=== PATIENT | female | born 1935 | race Hispanic/Latino ===

== ENCOUNTER 2017-04-16 16:07 | Inpatient (IN) | payer MEDICARE ==
[2017-04-16] MEDS ORDERED: Sodium Chloride 0.9% 1,000 ML IV STA (16:35)
--- NOTE | 2017-04-16 16:40 | ED PDOC ---
HPI: General Adult Time Seen by Provider: 04/16/17 16:20 Chief Complaint (Nursing): GI Problem Chief Complaint (Provider): Vomiting History Per: Patient History/Exam Limitations: no limitations Onset/Duration Of Symptoms: Days (today) Have you had recent travel within the past 21 days to any of the following countries: [place], [place], [place] or [place]?: No Current Symptoms Are (Timing): Still Present Additional Complaint(s): Pt. 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 No new food, drinks, travel. No chest pain, dyspnea, numbness, tingles, headaches, abd pain , headaches, dizziness, fever, back pain. No urinary complaints. Past Medical History Reviewed: Nursing Documentation, Vital Signs Vital Signs: Last Vital Signs Temp 96.5 F L 04/16/17 16:09 Pulse 82 04/16/17 16:09 Resp 16 04/16/17 16:09 BP 137/99 H 04/16/17 16:09 Pulse Ox - Medical History PMH: No Chronic Diseases - Surgical History Surgical History: No Surg Hx - Family History Family History: States: Unknown Family Hx - Living Arrangements Living Arrangements: With Family - Social History Current smoker - smoking cessation education provided: No Alcohol: None Drugs: Denies - Home Medications Home Medications: Ambulatory Orders Medication Instructions Recorded No Known Home Med 04/16/17 - Allergies Allergies/Adverse Reactions: Allergies Allergy/AdvReac Type Severity Reaction Status Date / Time No Known Allergies Allergy Verified 04/16/17 16:09 Review of Systems ROS Statement: Except As Marked, All Systems Reviewed And Found Negative Gastrointestinal: Positive for: Nausea, Vomiting Neurological: Positive for: Weakness Physical Exam - Reviewed Nursing Documentation Reviewed: Yes Vital Signs Reviewed: Yes - Physical Exam Appears: Positive for: Non-toxic, No Acute Distress Head Exam: Positive for: ATRAUMATIC, NORMAL INSPECTION, NORMOCEPHALIC Skin: Positive for: Normal Color, Warm, DRY Eye Exam: Positive for: EOMI, Normal appearance, PERRL ENT: Positive for: Normal ENT Inspection Neck: Positive for: Normal, Painless ROM Cardiovascular/Chest: Positive for: Regular Rate, Rhythm Respiratory: Positive for: CNT, Normal Breath Sounds Gastrointestinal/Abdominal: Positive for: Normal Exam, Bowel Sounds, Soft. Negative for: Tenderness Back: Positive for: Normal Inspection. Negative for: L CVA Tenderness, R CVA Tenderness Extremity: Positive for: Normal ROM. 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 Negative for: Motor/Sensory Deficits, Aphasia, Facial Droop - Laboratory Results Result Diagrams: 04/16/17 17:05 04/16/17 17:05 Interpretation Of Abn Labs: no acute - ECG ECG: Positive for: Interpreted By Me, Viewed By Me ECG Rhythm: Positive for: Normal QRS, Normal ST Segment, Sinus Rhythm - Radiology X-Ray: Read By Radiologist X-Ray Interpretation: No Acute Disease - CT Scan/US ct Other Rad Studies (CT/US): Read By Radiologist, Radiology Report Reviewed Other Rad Interpretation: no acute - Progress ED Course And Treament: 1848: Stable. Spoke with Dr. Miller. Will admit. Pt. still feels generally weak. No numbness, tingles. Continue fluids. Disposition - Clinical Impression Clinical Impression: Weakness, Vomiting - Patient ED Disposition Is Patient to be Admitted: Yes Counseled Patient/Family Regarding: Studies Performed, Diagnosis - Disposition Disposition Time: 18:50 Condition: FAIR - Pt Status Changed To: Hospital Disposition Of: Observation - POA Present On Arrival: None
[2017-04-16 17:16] LABS: BASO # 0.1 K/uL (0.0-0.2); BASO % 0.6 % (0.0-2.0); EOS % 0.4 % (0.0-4.0); HEMATOCRIT 41.9 % (34.0-47.0); LYMPH # 1.4 K/uL (1.0-4.3); LYMPH % 16.4 % (20.0-40.0); MEAN CELL VOLUME 91.5 fl (81.0-99.0); MEAN CORPUSCULAR HEMOGLOBIN 31.1 pg (27.0-31.0); MEAN PLATELET VOLUME 9.4 fl (7.2-11.7); MONO # 0.5 K/uL (0.0-0.8); MONO % 5.4 % (0.0-10.0); NEUT # 6.6 K/uL (1.8-7.0); NEUT % 77.2 % (50.0-75.0); NRBC % 0.1 % (0.0-0.0); RED CELL DISTRIBUTION WIDTH 13.3 % (11.5-14.5); WHITE BLOOD COUNT 8.6 K/uL (4.8-10.8)
[2017-04-16 17:27] LABS: ALB/GLOB RATIO 1.5 (1.0-2.1); ALKALINE PHOSPHATASE 62 U/L (38-126); ALT/SGPT 24 U/L (9-52); AST/SGOT 23 U/L (14-36); BILIRUBIN,TOTAL 0.9 mg/dl (0.2-1.3); BLOOD UREA NITROGEN 20 mg/dl (7-17); CALCIUM 9.6 mg/dL (8.4-10.2); CARBON DIOXIDE 25 mmol/L (22-30); CHLORIDE 101 mmol/L (98-107); GFR AFRICAN-AMERICAN > 60; GLUCOSE,RANDOM 118 mg/dL (65-105); LIPASE 93 U/L (23-300); POTASSIUM 4.1 MMOL/L (3.6-5.0); SODIUM 139 mmol/l (132-148); TOTAL PROTEIN 7.4 G/DL (6.3-8.2)
[2017-04-16 17:33] LABS: PARTIAL THROMBOPLASTIN TIME 28.5 Seconds (25.6-37.1)
--- NOTE | 2017-04-16 18:10 | CT ---
PROCEDURE: CT HEAD WITHOUT CONTRAST. HISTORY: headache COMPARISON: None available. TECHNIQUE: Axial computed tomography images were obtained through the head/brain without intravenous contrast. Radiation dose: Total exam DLP = 879.82 mGy-cm. This CT exam was performed using one or more of the following dose reduction techniques: Automated exposure control, adjustment of the mA and/or kV according to patient size, and/or use of iterative reconstruction technique. FINDINGS: HEMORRHAGE: No intracranial hemorrhage. BRAIN: Diffuse atrophy with prominence of the ventricles and sulci noted. No mass effect or edema. Scattered periventricular and subcortical white matter hypodensities, which are nonspecific, but often seen with chronic microvascular ischemic disease. Please note that MRI with diffusion imaging is more sensitive in the detection of acute ischemic event. VENTRICLES: No hydrocephalus. CALVARIUM: Unremarkable. PARANASAL SINUSES: Unremarkable as visualized. No significant inflammatory changes. MASTOID AIR CELLS: Small fluid/ partial opacification of the right mastoid air cells. The left mastoid air cells appear clear. OTHER FINDINGS: None. IMPRESSION: Nonspecific white matter changes. Generalized atrophy. Small fluid/ partial opacification of the right mastoid air cells. Correlate clinically for possibility of acute mastoiditis.
--- NOTE | 2017-04-16 18:33 | RAD ---
HISTORY: Weakness. COMPARISON: No prior. FINDINGS: LUNGS: No active pulmonary disease. PLEURA: No significant pleural effusion identified, no pneumothorax apparent. CARDIOVASCULAR: No radiographic findings to suggest acute or significant cardiovascular disease. OSSEOUS STRUCTURES: No significant abnormalities. VISUALIZED UPPER ABDOMEN: Normal. OTHER FINDINGS: None. IMPRESSION: No active disease.
[2017-04-16] MEDS: Sodium Chloride 0.9% 1,000 ML IV SCH (22:07)
--- NOTE | 2017-04-17 09:40 | CP.PCM.HP ---
History of Present Illness - History of Present Illness History of Present Illness: Pt. 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 No new food, drinks, travel. No chest pain, dyspnea, numbness, tingles, headaches, abd pain , headaches, dizziness, fever, back pain. No urinary complaints. Present on Admission - Present on Admission Any Indicators Present on Admission: No History of DVT/PE: No History of Uncontrolled Diabetes: No Urinary Catheter: No Decubitus Ulcer Present: No Review of Systems - Review of Systems All systems: reviewed and no additional remarkable complaints except Past Patient History - Past Medical History & Family History Past Medical History?: No Past Family History: Reviewed and not pertinent - Past Social History Smoking Status: Never Smoked Alcohol: None Drugs: Denies - PSYCHIATRIC Hx Substance Use: No - SURGICAL HISTORY Hx Surgeries: Yes Hx Hysterectomy: Yes - ANESTHESIA Hx Anesthesia: Yes Meds Allergies/Adverse Reactions: Allergies Allergy/AdvReac Type Severity Reaction Status Date / Time No Known Allergies Allergy Verified 04/16/17 16:09 Results - Vital Signs Recent Vital Signs: Last Vital Signs Temp 98.2 F 04/17/17 08:49 Pulse 72 04/17/17 08:49 Resp 16 04/17/17 08:49 BP 143/81 04/17/17 08:49 Pulse Ox 97 04/17/17 08:49 - Labs Result Diagrams: 04/16/17 17:05 04/16/17 17:05 Labs: Laboratory Results - last 24 hr 04/16/17 04/16/17 04/16/17 17:05 17:05 17:05 WBC 8.6 RBC 4.57 Hgb 14.2 Hct 41.9 MCV 91.5 MCH 31.1 H MCHC 34.0 RDW 13.3 Plt Count 162 MPV 9.4 Neut % (Auto) 77.2 H Lymph % (Auto) 16.4 L [place] % (Auto) 5.4 Eos % (Auto) 0.4 Baso % (Auto) 0.6 Neut # 6.6 Lymph # 1.4 [place] # 0.5 Eos # 0.0 Baso # 0.1 PT 10.6 INR 0.9 APTT 28.5 Sodium 139 Potassium 4.1 Chloride 101 Carbon Dioxide 25 Anion Gap 17 BUN 20 H Creatinine 0.8 Est GFR ( Amer) > 60 Est GFR (Non-Af Amer) > 60 Random Glucose 118 H Calcium 9.6 Total Bilirubin 0.9 AST 23 ALT 24 Alkaline Phosphatase 62 Troponin I < 0.0120 Total Protein 7.4 Albumin 4.4 Globulin 3.0 Albumin/Globulin Ratio 1.5 Lipase 93 TSH 3rd Generation 04/16/17 23:10 WBC RBC Hgb Hct MCV MCH MCHC RDW Plt Count MPV Neut % (Auto) Lymph % (Auto) [place] % (Auto) Eos % (Auto) Baso % (Auto) Neut # Lymph # [place] # Eos # Baso # PT INR APTT Sodium Potassium Chloride Carbon Dioxide Anion Gap BUN Creatinine Est GFR ( Amer) Est GFR (Non-Af Amer) Random Glucose Calcium Total Bilirubin AST ALT Alkaline Phosphatase Troponin I Total Protein Albumin Globulin Albumin/Globulin Ratio Lipase TSH 3rd Generation 4.60
[2017-04-17] MEDS: Sodium Chloride 0.9% 1,000 ML IV SCH ×2 (10:46→21:41)
[2017-04-17] MEDS: Enoxaparin 40 mg Syringe SC SCH (11:31)
--- NOTE | 2017-04-17 18:07 | CARD ---
APPROVED REPORT EKG Measurement Heart [id number] <Conclusion> Sinus rhythm with premature atrial complexes Otherwise normal ECG
[2017-04-17 18:39] VITALS: BMI 18.1
[2017-04-17] MEDS: Docusate-Senna 50 mg-8.6 mg Tab PO SCH (21:39)
[2017-04-18 05:53] LABS: ALB/GLOB RATIO 1.2 (1.0-2.1); ALKALINE PHOSPHATASE 43 U/L (38-126); ALT/SGPT 27 U/L (9-52); AST/SGOT 21 U/L (14-36); BILIRUBIN,TOTAL 0.9 mg/dl (0.2-1.3); BLOOD UREA NITROGEN 14 mg/dl (7-17); CALCIUM 8.4 mg/dL (8.4-10.2); CARBON DIOXIDE 25 mmol/L (22-30); CHLORIDE 111 mmol/L (98-107); GFR AFRICAN-AMERICAN > 60; GLUCOSE,RANDOM 88 mg/dL (65-105); POTASSIUM 3.6 MMOL/L (3.6-5.0); SODIUM 141 mmol/l (132-148); TOTAL PROTEIN 5.8 G/DL (6.3-8.2)
[2017-04-18 05:54] LABS: HEMATOCRIT 36.2 % (34.0-47.0); MEAN CELL VOLUME 91.4 fl (81.0-99.0); MEAN CORPUSCULAR HEMOGLOBIN 31.1 pg (27.0-31.0); RED CELL DISTRIBUTION WIDTH 13.5 % (11.5-14.5); WHITE BLOOD COUNT 6.3 K/uL (4.8-10.8)
[2017-04-18] MEDS: Enoxaparin 40 mg Syringe SC SCH (08:26)
--- NOTE | 2017-04-18 13:50 | CP.PCM.PN ---
Subjective - Date & Time of Evaluation Date of Evaluation: 04/18/17 Time of Evaluation: 12:20 Objective - Vital Signs/Intake and Output Vital Signs (last 24 hours): Temp Pulse Resp BP Pulse Ox 98.2 F 92 H 20 152/96 H 97 04/18/17 12:00 04/18/17 12:00 04/18/17 12:00 04/18/17 12:00 04/18/17 12:00 - Medications Medications: Current Medications Enoxaparin Sodium (Lovenox) 40 mg SC DAILY [facility] PRN Reason: Protocol Last Admin: 04/18/17 08:26 Dose: 40 mg Lactulose (Enulose) 20 gm PO DAILY [facility] Ondansetron HCl (Zofran Inj) 4 mg IVP Q6 PRN PRN Reason: Nausea/Vomiting Senna/Docusate Sodium (Senokot S 50 Mg-8.6 Mg) 2 tab PO HS [facility] Last Admin: 04/17/17 21:39 Dose: 2 tab - Labs Labs: 04/18/17 04:20 04/18/17 04:20 PT 10.6 Seconds (9.8-13.1) 04/16/17 17:05 INR 0.9 (0.9-1.2) 04/16/17 17:05 APTT 28.5 Seconds (25.6-37.1) 04/16/17 17:05
[2017-04-18] MEDS: Docusate-Senna 50 mg-8.6 mg Tab PO SCH (22:59)
[2017-04-19] MEDS: Enoxaparin 40 mg Syringe SC SCH (08:27)
[2017-04-19 12:50] VITALS: RESP 18
--- NOTE | 2017-04-19 15:00 | CP.PCM.CON ---
History of Present Illness - History of Present Illness History of Present Illness: 81 year old female seen at bedside for painful, elongated, dystrophic toenails. Patient states that she has not had her nails cut in a long period of time. Patient is AAO x 3 and NAD, resting comfortably in bed. Patient denies any further pedal complaints at this time. Patient denies N/V/F/C/CP/SOB Review of Systems - Review of Systems Review of Systems: ROS unremarkable outside of HPI Past Patient History - Past Medical History & Family History Past Medical History?: No - Past Social History Smoking Status: Never Smoked - CARDIAC Hx Cardiac Disorders: No - PULMONARY Hx Respiratory Disorders: No - NEUROLOGICAL Hx Neurological Disorder: No - HEENT Hx HEENT Problems: Yes Hx Cataracts: Yes - RENAL Hx Chronic Kidney Disease: No - ENDOCRINE/METABOLIC Hx Endocrine Disorders: No - HEMATOLOGICAL/ONCOLOGICAL Hx Blood Disorders: No - INTEGUMENTARY Hx Dermatological Problems: No - MUSCULOSKELETAL/RHEUMATOLOGICAL Hx Musculoskeletal Disorders: No Hx Falls: No - GASTROINTESTINAL Hx Gastrointestinal Disorders: Yes Hx Constipation: Yes - GENITOURINARY/GYNECOLOGICAL Hx Genitourinary Disorders: No - PSYCHIATRIC Hx Psychophysiologic Disorder: No Hx Substance Use: No - SURGICAL HISTORY Hx Surgeries: Yes Hx Cataract Extraction: Yes (L eye Cataract Sx) Hx Hysterectomy: Yes - ANESTHESIA Hx Anesthesia: Yes Hx Anesthesia Reactions: No Meds Home Medications: Home Medication List Medication Instructions Recorded Confirmed Type Docusate Sodium/Sennosides A 2 tab PO HS tab 04/19/17 Rx [Senokot S 50 MG-8.6 MG] Allergies/Adverse Reactions: Allergies Allergy/AdvReac Type Severity Reaction Status Date / Time No Known Allergies Allergy Verified 04/16/17 16:09 - Medications Medications: Current Medications Enoxaparin Sodium (Lovenox) 40 mg SC DAILY [facility] PRN Reason: Protocol Last Admin: 04/19/17 08:27 Dose: 40 mg Lactulose (Enulose) 20 gm PO DAILY [facility] Last Admin: 04/19/17 08:27 Dose: Not Given Ondansetron HCl (Zofran Inj) 4 mg IVP Q6 PRN PRN Reason: Nausea/Vomiting Senna/Docusate Sodium (Senokot S 50 Mg-8.6 Mg) 2 tab PO HS [facility] Last Admin: 04/18/17 22:59 Dose: Not Given Physical Exam - Constitutional Appears: Well, Non-toxic, No Acute Distress - Extremities Exam Additional comments: LE focused exam Vasc: DP/PT pulses palpable 2/4 b/l. Skin temperature warm to warm from proximal to distal. CFT < 3 seconds to all digits b/l. Pedal hair growth appreciated. No edema noted b/l Neuro: Epicritic and protective sensation grossly intact b/l Derm: No open lesions, wounds, maceration, xerosis, abnormal pigmentation or abnormal growths noted. Nails noted to be elongated, dystrophic, and abnormally colored MSK: No POP to b/l LE. MMT 5/5 on inversion, eversion, dorsiflexion and plantarflexion of feet b/l. ROM WNL to all major joints of LE - Neurological Exam Neurological exam: Alert, Oriented x3 - Psychiatric Exam Psychiatric exam: Normal Affect, Normal Mood Results - Vital Signs Recent Vital Signs: Last Vital Signs Temp 98.4 F 04/19/17 12:44 Pulse 76 04/19/17 12:44 Resp 18 04/19/17 12:44 BP 137/82 04/19/17 12:44 Pulse Ox 95 04/19/17 12:44 - Labs Result Diagrams: 04/18/17 04:20 04/18/17 04:20 Assessment & Plan - Assessment and Plan (Free Text) Assessment: 81 year old female seen at bedside for dystrophic, elongated, painful nails Plan: Patient seen and evaluated at bedside Nails 1-5 b/l reduced down to appropriate length using nail nippers without incident Patient tolerated procedure well Podiatry will sign off on patient at this time Thank you for the consult - Date & Time Date: 04/19/17 Time: 15:02
[2017-04-19 16:05] VITALS: BP 117/66; PULSE 70; TEMP 97.6; O2SAT 96
== END 2017-04-19 18:15 | DRG 948 ==
LOC: H.ER 16:07 → H.ERHOLD 18:49 → H.TEL 04-17 17:37 → OBSVTOIN 04-18 13:46 → H.TEL 04-18 22:41
PROVIDERS: ADMIT Internal Medicine; ATTEND Internal Medicine
PROC: 0HBRXZZ Excision of Toe Nail, External Approach (ICD-10-PCS; principal; 2017-04-19)
PROC: 0HBRXZZ Excision of Toe Nail, External Approach (ICD-10-PCS; 2017-04-19)
PROC: 0HBRXZZ Excision of Toe Nail, External Approach (ICD-10-PCS; 2017-04-19)
PROC: 0HBRXZZ Excision of Toe Nail, External Approach (ICD-10-PCS; 2017-04-19)
PROC: 0HBRXZZ Excision of Toe Nail, External Approach (ICD-10-PCS; 2017-04-19)
PROC: 0HBRXZZ Excision of Toe Nail, External Approach (ICD-10-PCS; 2017-04-19)
PROC: 0HBRXZZ Excision of Toe Nail, External Approach (ICD-10-PCS; 2017-04-19)
PROC: 0HBRXZZ Excision of Toe Nail, External Approach (ICD-10-PCS; 2017-04-19)
PROC: 0HBRXZZ Excision of Toe Nail, External Approach (ICD-10-PCS; 2017-04-19)
PROC: 0HBRXZZ Excision of Toe Nail, External Approach (ICD-10-PCS; 2017-04-19)
DX: R53.1 Weakness (principal); R11.10 Vomiting, unspecified; L60.8 Other nail disorders; Z90.710 Acquired absence of both cervix and uterus

== ENCOUNTER 2018-02-12 03:22 | Emergency (ER) | payer MEDICARE ==
[2018-02-12 03:42] VITALS: BMI 18.0
--- NOTE | 2018-02-12 04:18 | ED PDOC ---
HPI: General Adult Time Seen by Provider: 02/12/18 03:26 Chief Complaint (Nursing): Shortness Of Breath Chief Complaint (Provider): Weakness History Per: Patient, EMS History/Exam Limitations: no limitations Onset/Duration Of Symptoms: Hrs (x1) Current Symptoms Are (Timing): Still Present Additional Complaint(s): Kizzy Smith is an 82 year old female with no past medical history who is presenting to the ED with complaints of generalized weakness, onset 1 hour ago. As per EMS, patient had reported shortness of breath but currently patient denies any shortness of breath, chest pain, nausea, vomiting, or fevers. She offers no other medical complaints at this time. Of note, patient does not follow with any doctor. Past Medical History Reviewed: Historical Data, Nursing Documentation, Vital Signs Vital Signs: Last Vital Signs Temp 98.8 F 02/12/18 03:42 Pulse 87 02/12/18 03:42 Resp 16 02/12/18 03:42 BP 123/94 H 02/12/18 03:42 Pulse Ox 97 02/12/18 04:25 - Medical History PMH: No Chronic Diseases Denies: Chronic Kidney Disease - Surgical History Other surgeries: Hysterectomy - Family History Family History: States: Unknown Family Hx - Social History Current smoker - smoking cessation education provided: No Alcohol: None Drugs: Denies - Home Medications Home Medications: Ambulatory Orders Medication Instructions Recorded Docusate Sodium/Sennosides A 2 tab PO HS tab 04/19/17 [Senokot S 50 MG-8.6 MG] Nitrofurantoin Macrocrystals 100 mg PO BID #14 cap 02/12/18 [Macrobid] - Allergies Allergies/Adverse Reactions: Allergies Allergy/AdvReac Type Severity Reaction Status Date / Time No Known Allergies Allergy Verified 02/12/18 03:41 Review of Systems ROS Statement: Except As Marked, All Systems Reviewed And Found Negative Constitutional: Positive for: Weakness. Negative for: Fever Cardiovascular: Negative for: Chest Pain Respiratory: Positive for: Shortness of Breath (per EMS) Gastrointestinal: Negative for: Nausea, Vomiting Physical Exam - Reviewed Nursing Documentation Reviewed: Yes Vital Signs Reviewed: Yes - Physical Exam Appears: Positive for: Non-toxic, No Acute Distress (cachectic ) Head Exam: Positive for: ATRAUMATIC, NORMAL INSPECTION, NORMOCEPHALIC Skin: Positive for: Normal Color, Warm, DRY Eye Exam: Positive for: EOMI, Normal appearance, PERRL ENT: Positive for: Normal ENT Inspection Neck: Positive for: Normal, Painless ROM Cardiovascular/Chest: Positive for: Regular Rate, Rhythm. Negative for: Murmur Respiratory: Positive for: Normal Breath Sounds. Negative for: Respiratory Distress Gastrointestinal/Abdominal: Positive for: Normal Exam, Soft. Negative for: Tenderness Back: Positive for: Normal Inspection Extremity: Positive for: Normal ROM. 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 Negative for: Motor/Sensory Deficits, Aphasia, Facial Droop - Laboratory Results Result Diagrams: 02/12/18 04:10 02/12/18 04:10 - ECG O2 Sat by Pulse Oximetry: 97 (RA) Pulse Ox Interpretation: Normal Medical Decision Making Medical Decision Making: Time: 3:51 Impression: 82 year old female with generalized weakness Plan: --CT Head --Alcohol Serum --B-Type Natriuretic Peptide --CMP --Drug Screen --Lact Acid, Plasma --Troponin --ED Urine Dipstick --CBC --PTT --Coag --Chest X-Ray --Accucheck --Urinalysis CT Head: FINDINGS: Brain:Mild volume lossNo hemorrhageModerate/severe white matter diseaseNo edema. Ventricles: Normal. No ventriculomegaly. Bones/joints: Normal. No acute fracture. Sinuses: Normal as visualized. No acute sinusitis. Mastoid air cells: Normal as visualized. No mastoid effusion. Soft tissues: Normal. IMPRESSION: No intracranial hemorrhage.Please see discussion above. 5:25 Labs reviewed, revealed no clinically significant abnormalities with the exception of urine which was indicative of UTI. BNP was elevated but no evidence of CHF was noted on x-ray and patient denies any shortness of breath. Patient committed to provider that she will follow up outpatient. She is requesting to be discharged. Upon provider evaluation, patient is stable and medically cleared for discharge. Scribe Attestation: Documented by, Kasey Farrell acting as a scribe for Tom Andrews MD. Provider Scribe Attestation: All medical record entries made by the Scribe were at my direction and personally dictated by me. I have reviewed the chart and agree that the record accurately reflects my personal performance of the history, physical exam, medical decision making, and the department course for this patient. I have also personally directed, reviewed, and agree with the discharge instructions and disposition. Disposition - Clinical Impression Clinical Impression: Weakness, UTI (urinary tract infection) - Patient ED Disposition Is Patient to be Admitted: No - Disposition Referrals: [facility] [Outside] Disposition: Routine/Home Disposition Time: 05:28 Condition: STABLE Prescriptions: Nitrofurantoin Macrocrystals [Macrobid] 100 mg PO BID #14 cap Instructions: Urinary Tract Infections in Adults, Weakness (ED) Forms: [employer] (Eth[place]ian)
[2018-02-12 04:23] LABS: BASO % 0.5 % (0.0-2.0); EOS % 0.3 % (0.0-4.0); HEMOGLOBIN 14.3 g/dL (12.0-16.0); LYMPH # 1.3 K/uL (1.0-4.3); LYMPH % 13.8 % (20.0-40.0); MEAN CELL VOLUME 94.6 fl (81.0-99.0); MEAN CORPUSCULAR HEMOGLOBIN 32.1 pg (27.0-31.0); MEAN CORPUSCULAR HGB CONC 33.9 g/dL (33.0-37.0); MEAN PLATELET VOLUME 9.1 fl (7.2-11.7); MONO # 0.9 K/uL (0.0-0.8); NEUT # 7.4 K/uL (1.8-7.0); NEUT % 76.4 % (50.0-75.0); NRBC % 0.1 % (0.0-0.0); RBC 4.46 Mil/uL (3.80-5.20); WHITE BLOOD COUNT 9.7 K/uL (4.8-10.8)
[2018-02-12 04:37] LABS: INR 1.6; PROTHROMBIN TIME 18.4 Seconds (9.8-13.1)
[2018-02-12 04:40] LABS: PARTIAL THROMBOPLASTIN TIME 34.5 Seconds (25.6-37.1)
[2018-02-12 05:02] LABS: ALB/GLOB RATIO 1.5 (1.0-2.1); ALT/SGPT 24 U/L (9-52); AST/SGOT 23 U/L (14-36); BLOOD UREA NITROGEN 14 mg/dl (7-17); CALCIUM 9.7 mg/dL (8.4-10.2); GFR NON-AFRICAN AMERICAN > 60
[2018-02-12 05:14] LABS: B-TYPE NATRIURETIC PEPTIDE 3140 pg/ml (0-900)
[2018-02-12 05:15] LABS: SQUAMOUS EPITHIAL 1 /hpf (0-5); URINE BACTERIA RARE (<OCC); URINE BILIRUBIN NEGATIVE (NEGATIVE); URINE BLOOD LARGE (NEGATIVE); URINE CLARITY SLIGHTY-CLOUDY (Clear); URINE COLOR YELLOW (YELLOW); URINE GLUCOSE (UA) NEG (Normal); URINE LEUKOCYTE ESTERASE MOD Leu/uL (Negative); URINE PROTEIN NEGATIVE (NEGATIVE)
[2018-02-12 05:37] LABS: BARBITURATES, UR NEGATIVE (NEGATIVE); BENZODIAZEPINES, UR NEGATIVE (NEGATIVE); OPIATES, UR NEGATIVE (NEGATIVE); PHENCYCLIDINE, UR NEGATIVE (NEGATIVE)
[2018-02-12 07:04] VITALS: BP 129/68; PULSE 89; RESP 17; TEMP 98.5; O2SAT 98
--- NOTE | 2018-02-12 08:21 | CT ---
Date of service: 02/12/2018 PROCEDURE: CT HEAD WITHOUT CONTRAST. HISTORY: weakness COMPARISON: 04/16/2017 TECHNIQUE: Axial computed tomography images were obtained through the head/brain without intravenous contrast. Radiation dose: Total exam DLP = 940 mGy-cm. This CT exam was performed using one or more of the following dose reduction techniques: Automated exposure control, adjustment of the mA and/or kV according to patient size, and/or use of iterative reconstruction technique. FINDINGS: HEMORRHAGE: No intracranial hemorrhage. BRAIN: No mass effect or edema. There is generalized cerebral atrophy and periventricular and subcortical deep white matter bilateral hypodensities compatible with moderate -severe white matter disease. Left basal ganglionic lacunar infarcts similar-appearing VENTRICLES: Unremarkable. No hydrocephalus. CALVARIUM: Unremarkable. PARANASAL SINUSES: Unremarkable as visualized. No significant inflammatory changes. MASTOID AIR CELLS: Minimal right mastoid effusion noted -previously seen as well OTHER FINDINGS: None. IMPRESSION: No interval intracranial hemorrhage or mass effect. Atrophy and chronic micro vascular disease changes inferred in this age group-similar Mild right mastoid effusion -similar. . Apart from the similar mild right mastoid effusion, concordant results (preliminary interpretation) provided by [facility].
--- NOTE | 2018-02-12 08:34 | RAD ---
Date of service: 02/12/2018 HISTORY: weakness COMPARISON: 04/16/2017 FINDINGS: LUNGS: No active pulmonary disease. Bilateral hyperaeration and lucency -can be seen with COPD. No consolidation. PLEURA: No significant pleural effusion identified, no pneumothorax apparent. CARDIOVASCULAR: Mild cardiomegaly. Tortuous thoracic aorta. OSSEOUS STRUCTURES: Dextroscoliosis. Osteopenia. Bilateral shoulder arthrosis. VISUALIZED UPPER ABDOMEN: Normal. OTHER FINDINGS: None. IMPRESSION: No interval acute cardiopulmonary pathology noted. Multiple chronic findings as referenced above
== END 2018-02-12 07:07 | disposition home or self-care (01) ==
LOC: H.ER 03:22
DX: N39.0 Urinary tract infection, site not specified (principal); M62.81 Muscle weakness (generalized)
CPT/HCPCS: 70450; 71045; 80053; 81003; 82948; 83605; 83880; 84484; 85025; 85610; 85730; 87086; 99285; G0480